=== PATIENT | male | born 1955 | race Two or more races ===

== ENCOUNTER 2020-05-24 18:32 | Inpatient (IN) | payer OTHER ==
[~2020-05-24] VITALS: Ht 157.5 cm; Wt 38.1 kg
[2020-05-24 20:58] LABS: Basophils # (auto) 0 10 ^3/uL (0-0.2); Basophils % (auto) 0.3 % (0.0-2.0); Eosinophils # (auto) 0 10 ^3/uL (0-0.8); Eosinophils % (auto) 0.1 % (0.0-7.0); Hematocrit 43.8 % (41.0-53.0); Lymphocytes # (auto) 1.4 10 ^3/uL (0.4-5.4); Lymphocytes % (auto) 16.2 % (10.0-50.0); Mean Corpuscular Hgb Conc. 34.2 g/dL (32.0-36.0); Mean Corpuscular Volume 84.8 fL (80.0-100.0); Monocytes # (auto) 0.5 10 ^3/uL (0-1.3); Monocytes % (auto) 5.8 % (0.0-12.0); Neutrophils # (auto) 6.8 10 ^3/uL (1.6-8.6); Neutrophils % (auto) 77.6 % (37.0-80.0); Platelet Count (auto) 214 10^3/uL (140-450); Red Blood Cells 5.17 10^6/uL (4.5-5.90); White Blood Cell 8.8 10^3/uL (4.4-10.8)
[2020-05-24 21:12] LABS: Albumin 3.3 g/dL (3.4-5.0); Calcium 8.3 mg/dL (8.5-10.1); INR 0.98 (0.9-1.15); Potassium 3.1 mmol/L (3.5-5.1)
[2020-05-24 21:17] LABS: Bilirubin, Total 0.8 mg/dL (0.2-1.0); Total Protein 8.3 g/dL (6.4-8.2)
[2020-05-24] MEDS ORDERED: IOHEXOL 300 MG/ML 100ML BOTTLE IJ ONE (22:47)
[2020-05-25] MEDS ORDERED: cefTRIAXone 1GM/50ML D5W 50 ML IV ONE (01:45)
[2020-05-25] MEDS ORDERED: AZITHROMYCIN 500MG/ 250ML 250 ML IV ONE (01:45)
[2020-05-25] MEDS ORDERED: TEMAZEPAM 15 MG CAP PO PRN (04:45)
[2020-05-25] MEDS ORDERED: NITROGLYCERIN 0.4 MG SL TAB SL PRN (04:45)
[2020-05-25] MEDS ORDERED: POTASSIUM CHL 20 Meq TABLET PO ONE (04:45)
[2020-05-25] MEDS ORDERED: ACETAMINOPHEN 500 MG TAB PO PRN (04:45)
[2020-05-25] MEDS ORDERED: MORPHINE SULF INJ 2 MG/ML SYRINGE 1ML IV PRN (04:45)
[2020-05-25] MEDS ORDERED: ONDANSETRON HCL 4 MG/2 ML VIAL IV PRN (04:45)
[2020-05-25] MEDS ORDERED: ALBUTEROL SULF HFA 90MCG INH 200DOSE IN PRN (04:45)
[2020-05-25 06:50] LABS: CRP High Sensitivity 14.9 mg/dL (< 0.3); Magnesium 2.4 mg/dL (1.6-2.6)
[2020-05-25] MEDS ORDERED: FAMOTIDINE 20 MG TAB PO SCH (10:00)
[2020-05-25] MEDS ORDERED: ENOXAPARIN SOD 40 MG/0.4 ML SYRINGE SC SCH (10:00)
[2020-05-25] MEDS ORDERED: ASCORBIC ACID 1,000 MG TAB PO SCH (10:00)
[2020-05-25] MEDS ORDERED: CHOLECALCIFEROL (VITD3) 2,000 UNIT CAP PO SCH (10:00)
[2020-05-25] MEDS ORDERED: DexAMETHasone SOD PHOS 10MG/1ML VIAL INJ IV SCH (10:00)
[2020-05-25] MEDS ORDERED: ZINC SULFATE 220mg CAP or TAB PO SCH (10:00)
[2020-05-25] MEDS ORDERED: HYDR12.56 PO (11:17)
[2020-05-25] MEDS ORDERED: LISI-648 PO (11:17)
[2020-05-25] MEDS ORDERED: ZINC220T6 PO (12:44)
[2020-05-25] MEDS ORDERED: ALBUAER3 IN (12:44)
[2020-05-25] MEDS ORDERED: CHOL1CAP47 PO (12:44)
[2020-05-25] MEDS ORDERED: ASCO500T11 PO (12:44)
[2020-05-25] MEDS ORDERED: AZIT500T66 PO (12:44)
[2020-05-25 13:34] LABS: BUN/Creatinine Ratio 13.8; Calcium 8.4 mg/dL (8.5-10.1); Potassium 3.5 mmol/L (3.5-5.1)
[2020-05-25] MEDS ORDERED: METH4PAK PO (13:54)
[2020-05-25] MEDS ORDERED: ASPI81CH43 PO (13:54)
[2020-05-25 14:36] VITALS: BP 131/76
[2020-05-25] MEDS ORDERED: AZITHROMYCIN 500MG/ 250ML 250 ML IV SCH (21:00)
== END 2020-05-25 14:48 | disposition home or self-care (01) | DRG 177 ==
LOC: ER 18:32 → TELE 05-25 04:36
PROVIDERS: ADMIT Nurse Practitioner; ATTEND Internal Medicine
DX: U07.1 COVID-19 (principal); J12.82 Pneumonia due to coronavirus disease 2019; E44.0 Moderate protein-calorie malnutrition; Z68.1 Body mass index [BMI] 19.9 or less, adult; E66.9 Obesity, unspecified; E83.51 Hypocalcemia; E87.6 Hypokalemia; I10 Essential (primary) hypertension
CPT/HCPCS: 36415; 71045; 71275; 80048; 80053; 82728; 83605; 83615; 83735; 84484; 85025; 85379; 85610; 85730; 86141; 87040; 93005; 96365; 96367; G0378; J0696; J1100

== ENCOUNTER 2020-10-10 17:56 | Inpatient (IN) | payer SELFPAY ==
[~2020-10-10] VITALS: Ht 160 cm; Wt 78.0 kg
[~2020-10-10 17:56] MED LIST: ALBUAER3 IN; ASCO500T11 PO; ASPI81CH43 PO; AZIT500T66 PO; CHOL1CAP47 PO; HYDR12.56 PO; LISI-716 PO; METH4PAK PO; ZINC220T6 PO
[2020-10-10 19:42] LABS: Basophils # (auto) 0.1 10 ^3/uL (0-0.2); Basophils % (auto) 0.7 % (0.0-2.0); Eosinophils # (auto) 0.3 10 ^3/uL (0-0.8); Eosinophils % (auto) 3.3 % (0.0-7.0); Hematocrit 44.5 % (41.0-53.0); Hemoglobin 14.7 g/dL (13.5-17.5); Lymphocytes # (auto) 2.8 10 ^3/uL (0.4-5.4); Mean Corpuscular Hemoglobin 27.9 pg (28.0-32.0); Mean Corpuscular Hgb Conc. 33.1 g/dL (32.0-36.0); Mean Corpuscular Volume 84.3 fL (80.0-100.0); Monocytes # (auto) 0.5 10 ^3/uL (0-1.3); Monocytes % (auto) 6.5 % (0.0-12.0); Neutrophils # (auto) 4.6 10 ^3/uL (1.6-8.6); Neutrophils % (auto) 55.5 % (37.0-80.0); Nucleated Red Blood Cells % 0.3 %; Platelet Count (auto) 255 10^3/uL (140-450); Red Blood Cells 5.27 10^6/uL (4.5-5.90); Red Cell Distribution Width 14.7 % (11.8-14.3); White Blood Cell 8.3 10^3/uL (4.4-10.8)
[2020-10-10 19:55] LABS: Blood Urea Nitrogen 11 mg/dL (7-18); Calcium 8.3 mg/dL (8.5-10.1); Chloride 102 mmol/L (98-107); Glucose 251 mg/dL (74-106); Potassium 3.5 mmol/L (3.5-5.1); Sodium 137 mmol/L (136-145)
[2020-10-10 19:57] LABS: Albumin 3.4 g/dL (3.4-5.0); Anion Gap 7 (5-15); BUN/Creatinine Ratio 10.9; Carbon Dioxide 28 mmol/L (21-32); GFR African American 96 mL/min; GFR Non-African American 79 mL/min
[2020-10-10 20:10] LABS: Alanine Aminotransferase 33 U/L (16-61); Alkaline Phosphatase 52 U/L (45-117); Aspartate Aminotransferase 20 U/L (15-37); Bilirubin, Total 0.4 mg/dL (0.2-1.0); Total Protein 7.3 g/dL (6.4-8.2)
[2020-10-10] MEDS ORDERED: SUMAtriptan SUCCINATE 25 MG TAB PO ONE (21:00)
[2020-10-10] MEDS ORDERED: NITROGLYCERIN 0.4 MG SL TAB SL PRN (23:15)
[2020-10-10] MEDS ORDERED: HYDROcodone-ACET 5/325MG TAB PO PRN (23:15)
[2020-10-10] MEDS ORDERED: TEMAZEPAM 15 MG CAP PO PRN (23:15)
[2020-10-10] MEDS ORDERED: ACETAMINOPHEN 325 MG TAB PO PRN (23:15)
[2020-10-10] MEDS ORDERED: ONDANSETRON HCL 4 MG/2 ML VIAL IV PRN (23:15)
[2020-10-10] MEDS ORDERED: cloNIDine HCL 0.1 MG TAB PO PRN (23:15)
[2020-10-10] MEDS ORDERED: MORPHINE SULF INJ 2 MG/ML SYRINGE 1ML IV PRN (23:15)
[2020-10-10] MEDS ORDERED: DOCUSATE SOD 100 MG CAP PO PRN (23:15)
[2020-10-11] VITALS (8 sets, daily range): BP systolic 121–153; BP diastolic 75–95
[2020-10-11 05:33] LABS: Basophils # (auto) 0.1 10 ^3/uL (0-0.2); Basophils % (auto) 1.2 % (0.0-2.0); Eosinophils # (auto) 0.2 10 ^3/uL (0-0.8); Hemoglobin 14.6 g/dL (13.5-17.5); Lymphocytes # (auto) 2.7 10 ^3/uL (0.4-5.4); Lymphocytes % (auto) 33.2 % (10.0-50.0); Mean Corpuscular Hemoglobin 28.4 pg (28.0-32.0); Mean Corpuscular Hgb Conc. 33.9 g/dL (32.0-36.0); Mean Corpuscular Volume 83.8 fL (80.0-100.0); Monocytes # (auto) 0.6 10 ^3/uL (0-1.3); Monocytes % (auto) 7.3 % (0.0-12.0); Neutrophils # (auto) 4.4 10 ^3/uL (1.6-8.6); Neutrophils % (auto) 55.3 % (37.0-80.0); Nucleated Red Blood Cells % 0.2 %; Platelet Count (auto) 241 10^3/uL (140-450); Red Blood Cells 5.14 10^6/uL (4.5-5.90); Red Cell Distribution Width 14.4 % (11.8-14.3)
[2020-10-11 05:52] LABS: BUN/Creatinine Ratio 14.5; Potassium 3.7 mmol/L (3.5-5.1)
[2020-10-11] MEDS ORDERED: ASPirin 81 mg TAB PO SCH (10:00)
[2020-10-11 10:35] LABS: Cholesterol 193 mg/dL (< 200)
[2020-10-11 10:39] LABS: HDL Cholesterol 37 mg/dL (40-59); LDL Cholesterol 141 mg/dL (< 100); Triglycerides 193 mg/dL (< 150)
[2020-10-11] MEDS: FAMOTIDINE 20 MG TAB PO SCH ×2 (12:04→21:11)
[2020-10-11] MEDS: LISINOPRIL 10 MG TAB PO SCH (12:05)
[2020-10-11] MEDS: ENOXAPARIN SOD 40 MG/0.4 ML SYRINGE SC SCH (12:05)
[2020-10-11] MEDS ORDERED: ATORVASTATIN 20 MG TAB PO SCH ×2 (22:00→22:30)
[2020-10-12 05:00] VITALS: BP 101/69
[2020-10-12 09:00] VITALS: BP 145/74
[2020-10-12] MEDS: ENOXAPARIN SOD 40 MG/0.4 ML SYRINGE SC SCH (10:00)
[2020-10-12] MEDS: FAMOTIDINE 20 MG TAB PO SCH (10:27)
[2020-10-12] MEDS: LISINOPRIL 10 MG TAB PO SCH (10:28)
[2020-10-12 10:51] VITALS: BP 145/74
[2020-10-12 13:00] VITALS: BP 137/83
[2020-10-12] MEDS ORDERED: ATOR20TA50 PO (14:23)
[2020-10-12 14:38] VITALS: BP 137/83
== END 2020-10-12 16:00 | disposition home or self-care (01) | DRG 103 ==
LOC: ER 17:56 → TELE-CENTR 23:03
PROVIDERS: ADMIT Nurse Practitioner; ATTEND Internal Medicine
PROC: 5A09357 Assistance with Respiratory Ventilation, Less than 24 Consecutive Hours, Continuous Positive Airway Pressure (ICD-10-PCS; principal; 2020-10-11)
DX: R51.9 Headache, unspecified (principal); R20.0 Anesthesia of skin; E66.9 Obesity, unspecified; I10 Essential (primary) hypertension; E78.5 Hyperlipidemia, unspecified; R53.83 Other fatigue; J32.9 Chronic sinusitis, unspecified; Z20.822 Contact with and (suspected) exposure to COVID-19; F17.200 Nicotine dependence, unspecified, uncomplicated; Z68.30 Body mass index [BMI] 30.0-30.9, adult; Z83.3 Family history of diabetes mellitus; Z80.9 Family history of malignant neoplasm, unspecified; Z79.899 Other long term (current) drug therapy; Z90.49 Acquired absence of other specified parts of digestive tract
CPT/HCPCS: 36415; 70450; 70551; 80048; 80053; 80061; 84484; 85025; 87426; 93005; 93306; 93886; 94660; 94762; G0378